=== PATIENT | male | born 1985 | race African-American/Black ===

== ENCOUNTER 2017-02-17 23:24 | Emergency (ER) | payer OTHER ==
[~2017-02-17] VITALS: Ht 162.6 cm; Wt 90.7 kg
--- NOTE | ~2017-02-17 | EKG ---
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
[~2017-02-17 23:24] MED LIST: CARVEDILOL25 MG PO; COREG25 MG PO; COREG6.25 MG PO; EDARBYCLOR 40-1 EAC1 PO; LISINOPRIL20 MG PO; PHENERGAN 25 MG25 M1 PO; PRINIVIL20 MG PO; VITAMIN B-1100 M2 PO
[2017-02-18 00:13] LABS: ABSOLUTE NEUTROPHILS 2.8 thou/uL (1.4-8.2); EOSINOPHILS 2.2 % (0.0-3.0); HEMATOCRIT 35.5 % (42.0-52.0); HEMOGLOBIN 12.4 gm/dL (14.0-18.0); LYMPHOCYTES 51.7 % (24.0-44.0); MCH 32.6 pg (26.0-34.0); MCHC 35.1 g/dL (28.0-37.0); MONOCYTES 5.8 % (1.0-8.0); PLATELET COUNT 294 thou/uL (150-400); POLYS 38.3 % (36.0-66.0); RBC 3.81 mil/uL (4.50-6.00); RDW 13.9 % (10.5-14.5); WBC 7.4 thou/uL (4.0-11.0)
[2017-02-18 00:16] LABS: MANUAL DIFF NO
[2017-02-18 00:28] LABS: ANION GAP 14 mmol/L (7-16); BUN 12 mg/dL (7-18); CALCIUM 8.4 mg/dL (8.5-10.1); CHLORIDE 99 mmol/L (98-107); CO2 23 mmol/L (21-32); CREATININE 0.9 mg/dL (0.7-1.3); SODIUM 136 mmol/L (136-145); TROPONIN-I < 0.04 ng/mL (<0.04-0.07)
[2017-02-18 00:44] LABS: ALBUMIN 3.6 g/dL (3.4-5.0); ALKALINE PHOSPHATASE 63 U/L (46-116); DIRECT BILIRUBIN < 0.1 mg/dL (<0.1-0.3); TOTAL BILIRUBIN 0.3 mg/dL (<0.1-1.0); TOTAL PROTEIN 7.2 g/dL (6.4-8.2)
[2017-02-18 00:52] LABS: GLUCOSE 144 mg/dL (74-106)
[2017-02-18 00:58] LABS: SGPT 15 U/L (30-65)
[2017-02-18] MEDS ORDERED: SLOW-MAG64 M1 PO (02:28)
[2017-02-18] MEDS ORDERED: POTASSIUM20 PO (02:28)
== END 2017-02-18 03:49 | disposition home or self-care (01) ==
LOC: ER 23:24
PROVIDERS: Emergency Medicine
DX: R07.89 Other chest pain (principal); F10.120 Alcohol abuse with intoxication, uncomplicated; I16.0 Hypertensive urgency; E87.6 Hypokalemia; I48.91 Unspecified atrial fibrillation; E66.8 Other obesity; F17.210 Nicotine dependence, cigarettes, uncomplicated

== ENCOUNTER 2017-02-24 21:40 | Inpatient (IN) | payer OTHER ==
[~2017-02-24] VITALS: Ht 162.6 cm; Wt 88.0 kg
--- NOTE | ~2017-02-24 | EKG ---
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 : 1985 Requested By: Carlyle Wilkins Order Number: [id number] MD: John Murguia Measurements Intervals [place] Rate: 85 P: 64 WI: 148 QRS: 43 QRSD: 97 T: 193 QT: 387 QTc: 461 Interpretive Statements Sinus rhythm Biatrial enlargement LVH with secondary repolarization abnormality ST depr inferiorly unchanged from prior EKG Anterior ST elevation, probably due to LVH Electronically Signed On 02-25-2017 9:34:01 CDT by John Murguia [email or web address] <ELECTRONICALLY SIGNED> By: John Murguia MD 02/25/17 0934 2144 John Murguia MD /RADHA
--- NOTE | ~2017-02-24 | 2DMMODE ---
[facility] [place] [address] 2 D/M-MODE ECHOCARDIOGRAM Name: LANAATLY RAYLE Room #: 453-P [facility] IN ..#: [id number] Admission: 02/24/17 Attend Phys: Lon Ray, Discharge: Date of : 85 Date of Service: 02/25/17 1256 Report #: [id number] THIS REPORT FOR: //name// APPROVED REPORT Study performed: 02/25/2017 11:44:03 EXAM: Comprehensive 2D, Doppler, and color-flow Echocardiogram Patient Location: Bedside Room #: 453 Blood Pressure: 186/122 mmHg Other Information Study Quality: Adequate 2D Dimensions RVDd: 41.51 mm LVEF(%): 68.31 (>50%) IVSd: 19.55 (7-11mm) LVOT Diam: 21.91 (18-24mm) LVDd: 44.25 mm PWd: 19.62 (7-11mm) Ascending Ao: 26.99 (22-36mm) LVDs: 27.46 (25-40mm) Aortic Root: 32.32 mm Robledo's LVEF: 68.31 % Volumes Left Atrial Volume (Systole) Single Plane 4CH: 66.85 mL Single Plane 2CH: 18.87 mL LA ESV Index: 20.00 mL/m2 Aortic Valve AoV Peak Ryan.: 1.39 m/s AO Peak Gr.: 7.70 mmHg LVOT Max P.53 mmHg LVOT Max V: 1.06 m/s CHA Vmax: 2.89 cm2 Mitral Valve E/A Ratio: 1.4 MV Decel. Time: 184.79 ms MV E Max Ryan.: 0.76 m/s MV A Ryan.: 0.56 m/s MV PHT: 53.59 ms IVRT: 114.[address] [facility] [place] [address] 2 D/M-MODE ECHOCARDIOGRAM Name: NATALY TOVAR Room #: 453-P [facility] IN ..#: [id number] Admission: 02/24/17 Attend Phys: Lon Ray, Discharge: Date of : 85 Date of Service: 02/25/17 1256 Report #: [id number] Pulmonary Valve PV Peak Ryan.: 0.86 m/s PV Peak Gr.: 2.94 mmHg Pulmonary Vein P Vein S: 0.40 m/s P Vein A: 0.12 m/s P Vein D: 0.34 m/s P Vein A Dur.: 93.4 msec P Vein S/D Ratio: 1.18 Tricuspid Valve TR Peak Ryan.: 3.25 m/s TR Peak Gr.: 42.24 mmHg Left Ventricle The left ventricle is normal size. There is normal LV segmental wall motion. Concentric left ventricular hypertrophy. The left ventricular systolic function is normal. The left ventricular ejection fraction is within the normal range. LVEF is 60-65%. Right Ventricle Right ventricle is normal The right ventricular systolic function is normal. Atria The left atrium size is normal. The right atrium size is normal. Aortic Valve The aortic valve is normal in structure. No aortic regurgitation is present. There is no aortic valvular stenosis. Mitral Valve The mitral valve is normal in structure. There is no mitral valve regurgitation noted. No evidence of mitral valve stenosis. Tricuspid Valve The tricuspid valve is normal in structure. Trace tricuspid regurgitation. Pulmonic Valve The pulmonary valve is normal in structure. Trace to mild pulmonic regurgitation. Great Vessels The aortic root is normal in size. The ascending aorta is normal in size. The inferior vena cava is not well [address] [address] 2 D/M-MODE ECHOCARDIOGRAM Name: LANATALY JAYME Room #: 453-P [facility] IN .#: [id number] Admission: 02/24/17 Attend Phys: Lon Ray, Discharge: Date of : 85 Date of Service: 02/25/17 1256 Report #: [id number] visualized. Pericardium There is no pericardial effusion. <Conclusion> The left ventricular ejection fraction is within the normal range. There is normal LV segmental wall motion. LVEF 60-65%. Concentric left ventricular hypertrophy. The aortic valve is normal in structure. No aortic valvular insufficiency or stenosis. The mitral valve is normal in structure. There is no mitral valve regurgitation noted. Pulmonary artery pressure could not be reliably ascertained. There is no pericardial effusion. <ELECTRONICALLY SIGNED> By: Oz Lauren MD, [facility] 02/25/17 1256 1256 1256 Oz Lauren MD, FACC /INF
[~2017-02-24 21:40] MED LIST changes: +POTASSIUM20 PO; +SLOW-MAG64 M1 PO
[2017-02-24 21:46] VITALS: BP 181/113
[2017-02-24 22:03] LABS: HEMATOCRIT 37.7 % (42.0-52.0); HEMOGLOBIN 12.8 gm/dL (14.0-18.0); MCH 32.4 pg (26.0-34.0); MCV 95.5 fL (80.0-100.0); PLATELET COUNT 290 thou/uL (150-400); RBC 3.95 mil/uL (4.50-6.00); RDW 14.3 % (10.5-14.5)
[2017-02-24 22:12] LABS: CALCIUM 8.7 mg/dL (8.5-10.1); CREATININE 1.1 mg/dL (0.7-1.3)
[2017-02-24 22:14] LABS: MANUAL DIFF YES
[2017-02-24 22:22] LABS: ALBUMIN 3.8 g/dL (3.4-5.0); MAGNESIUM 1.9 mg/dL (1.8-2.4); TOTAL BILIRUBIN 0.3 mg/dL (<0.1-1.0); TOTAL PROTEIN 8.1 g/dL (6.4-8.2); TROPONIN-I 0.14 ng/mL (<0.04-0.07)
[2017-02-24 22:32] LABS: ABSOLUTE NEUTROPHILS 3.2 thou/uL (1.4-8.2); TOTAL CELL COUNT 100
[2017-02-25] VITALS (10 sets, daily range): BP systolic 105–186; BP diastolic 65–122
[2017-02-25 04:07] LABS: HEMATOCRIT 36.1 % (42.0-52.0); HEMOGLOBIN 12.8 gm/dL (14.0-18.0); MCH 33.3 pg (26.0-34.0); MCHC 35.4 g/dL (28.0-37.0); MCV 94.1 fL (80.0-100.0); RBC 3.84 mil/uL (4.50-6.00); RDW 14.2 % (10.5-14.5); WBC 6.4 thou/uL (4.0-11.0)
[2017-02-25 04:24] LABS: CALCIUM 8.3 mg/dL (8.5-10.1); CREATININE 0.9 mg/dL (0.7-1.3); TROPONIN-I 0.18 ng/mL (<0.04-0.07)
[2017-02-25 04:29] LABS: POTASSIUM 4.1 mmol/L (3.5-5.1)
[2017-02-25 05:53] LABS: ALBUMIN 3.3 g/dL (3.4-5.0); ALKALINE PHOSPHATASE 53 U/L (46-116); DIRECT BILIRUBIN < 0.1 mg/dL (<0.1-0.3); TOTAL BILIRUBIN 0.4 mg/dL (<0.1-1.0); TOTAL PROTEIN 7.7 g/dL (6.4-8.2)
[2017-02-25 05:58] LABS: SGOT 41 U/L (15-37); SGPT 6 U/L (30-65)
[2017-02-25 08:59] LABS: CHOLESTEROL 304 mg/dL (<200); HDL CHOLESTEROL 38 mg/dL (>40)
[2017-02-25 09:14] LABS: TRIGLYCERIDE 1382 mg/dL (<150); VLDL 276 mg/dL (<40)
[2017-02-26 02:11] LABS: GLYCOHEMOGLOBIN (HGB A1C) 6.1 % (4.8-5.6)
== END 2017-02-25 16:35 | disposition home or self-care (01) | DRG 313 ==
LOC: ER 21:40 → EROBS 23:36 → 4W 23:36
PROVIDERS: Emergency Medicine; Internal Medicine; Nurse Practitioner Family; Nurse Practitioner Gerontology
DX: R07.89 Other chest pain (principal); I10 Essential (primary) hypertension; F10.10 Alcohol abuse, uncomplicated; I48.91 Unspecified atrial fibrillation; I16.0 Hypertensive urgency; E78.5 Hyperlipidemia, unspecified; F17.210 Nicotine dependence, cigarettes, uncomplicated; R73.9 Hyperglycemia, unspecified; E87.6 Hypokalemia; Z79.01 Long term (current) use of anticoagulants; Z82.49 Family history of ischemic heart disease and other diseases of the circulatory system; Z79.82 Long term (current) use of aspirin; Z79.899 Other long term (current) drug therapy; Z71.6 Tobacco abuse counseling; Z71.41 Alcohol abuse counseling and surveillance of alcoholic; Z91.14 Patient's other noncompliance with medication regimen